=== PATIENT | female | born 1990 | race Caucasian/White ===

== ENCOUNTER 2018-01-01 11:43 | Emergency (ER) | payer MEDICARE, OTHER ==
[2018-01-01 12:41] VITALS: BP 158/96
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
== END 2018-01-01 13:31 | disposition home or self-care (01) ==
LOC: JP.ED 11:43
DX: S09.93XA Unspecified injury of face, initial encounter (principal); Y04.2XXA Assault by strike against or bumped into by another person, initial encounter
CPT/HCPCS: 99283